=== PATIENT | female | born 1955 | race Caucasian/White ===

== ENCOUNTER 2017-02-02 09:19 | Day surgery (SDC) | payer OTHER ==
--- NOTE | 2017-02-01 12:56 | PREOPHP ---
DATE OF ADMISSION: 02/02/2017 HISTORY OF PRESENT ILLNESS: This 61-year-old patient is admitted for elective cataract surgery of t he left eye. The patient has had decreased vision in that eye over the last half a year's time. Th e patient also has a history of chronic open angle glaucoma, currently being controlled with latanop alyssa and brimonidine in both eyes. The patient's systemic history is positive for an adult onset di abetes mellitus, systemic hypertension, and chronic kidney disease, lupus, gout, asthma, chronic gas tritis and rhinitis. ALLERGIES: The patient is allergic to NORVASC and PRINIVIL. CURRENT MEDICATIONS INCLUDE: Humalog insulin, furosemide, potassium chloride, Losartan, metoprolol, simvastatin, aspirin (discontinued 1 week prior to surgery). The patient uses Prevacid on an as ne eded basis. The patient is also on Flovent, fludrocortisone nasal spray, loratadine, Montelukast, a nd Ventolin on an as needed basis. PHYSICAL EXAMINATION: The visual acuity with best correction is 20/40 in the right eye and 20/80 in the left eye. Slit lamp examination reveals nucleated sclerotic cataract of moderate degree in bot h eyes and a posterior subcapsular opacity in the left eye. Applanation tonometry is 16 mmHg. Exam ination of the retina reveals optic disks changes secondary to chronic glaucoma. DIAGNOSIS: Cataract, left eye. PLAN: Cataract extraction with lens implant, left eye. The risks and alternatives to the surgery h ave been discussed with the patient as well as the hope for improvement of visual acuity leading to greater ability to perform activities of daily living. The patient understands this and agrees to armani shen with surgery. Dictated By: DOROTHY SNEED/SABINE Conf#: [id number] DID#: [id number] CC: DOROTHY COOPER MD;*EndCC*
[2017-02-02] VITALS (12 sets, daily range): BP systolic 98–135; BP diastolic 51–63; PULSE 60–72; RESP 16–28; Ht 154.9 cm; Wt 101.0 kg
[~2017-02-02] VITALS: Ht 154.9 cm; Wt 101.0 kg
[~2017-02-02 09:19] MED LIST: ALLO100T PO; ALLO300T2 PO; BROMFENAC SODIUM 1.7 ML OPH DROP OPER SCH; CLON-230 PO; CYCLOPENTOLATE/PHENYLEPH 2 ML OPH OPER SCH; FLUT1DIS22 IH; INSU100C3 SQ; INSU100C5 SQ; LANS15CA19 PO; LASS PO; LOSA100T47 PO; METO-104 PO; MOXIFLOXACIN 0.5% 3 ML OPH OPER SCH; NASO17 NS; POTA25TA PO; RTPRO5 IH; SIMV40TA3 PO; SOD CHLORIDE 0.9% 1,000 ML IV SCH; TRAM50TA2 PO; TROPICAMIDE 1% 3 ML OPH OPER SCH
[2017-02-02] MEDS ORDERED: INSU100I33 SC (09:47)
[2017-02-02] MEDS ORDERED: INSU200I SQ (09:48)
[2017-02-02] MEDS ORDERED: LOSA100T7 PO (09:49)
[2017-02-02] MEDS ORDERED: POTA8TAB2 PO (09:49)
[2017-02-02] MEDS ORDERED: FURO40TA4 PO (09:49)
[2017-02-02] MEDS ORDERED: SIMV20TA PO (10:25)
[2017-02-02] MEDS ORDERED: ASPI-664 PO (10:25)
[2017-02-02] MEDS ORDERED: METO-336 PO (10:25)
[2017-02-02] MEDS ORDERED: DOCU100C26 PO (10:26)
[2017-02-02] MEDS ORDERED: PANT40TA4 PO (10:26)
[2017-02-02] MEDS ORDERED: LATA2.5D2 BOTH EYES (10:27)
[2017-02-02] MEDS ORDERED: COMBIG5 BOTH EYES (10:27)
[2017-02-02] MEDS ORDERED: FLOV220 INHALATION (10:28)
[2017-02-02] MEDS ORDERED: FLUT16SP17 NASAL (10:28)
[2017-02-02] MEDS ORDERED: LORA10TA3 PO (10:28)
[2017-02-02] MEDS ORDERED: MONT10TA24 PO (10:29)
[2017-02-02] MEDS ORDERED: GABA300C16 PO (10:30)
[2017-02-02] MEDS ORDERED: TRAM-40 PO (10:30)
[2017-02-02] MEDS ORDERED: ALLO100T PO (10:31)
[2017-02-02] MEDS ORDERED: CYCL-319 PO (10:31)
[2017-02-02] MEDS ORDERED: ACET1TAB40 PO (10:32)
[2017-02-02] MEDS ORDERED: FENTAnyl 50 MCG/ML VIAL IV PRN ×3 (11:00)
[2017-02-02] MEDS ORDERED: METOCLOPRAMIDE 10 MG INJ IV PRN (11:00)
[2017-02-02] MEDS ORDERED: OXYCODONE/ACETAMINOPHEN (5/325) TAB PO PRN ×2 (11:00)
[2017-02-02] MEDS ORDERED: LABETALOL HCL 20MG INJ IV PRN (11:00)
[2017-02-02] MEDS ORDERED: MEPERIDINE 25 MG INJ IV PRN (11:00)
[2017-02-02] MEDS ORDERED: DIPHENHYDRAMINE 50 MG INJ IV PRN (11:00)
[2017-02-02] MEDS ORDERED: ONDANSETRON 4 MG INJ IV PRN (11:00)
[2017-02-02] MEDS ORDERED: hydrALAzine 20 MG INJ IV PRN (11:00)
[2017-02-02] MEDS ORDERED: MIDAZOLAM 1 MG/ML 2 ML INJ IV PRN (11:00)
[2017-02-02] MEDS ORDERED: EPHEDrine SULFATE 50 MG/5 ML SYG IV PRN (11:00)
[2017-02-02] MEDS ORDERED: PROPOFOL 20 ML ONE (11:24)
[2017-02-02] MEDS ORDERED: CARBACHOL 0.01% 1.5 ML OPH INJ IO ONE (11:30)
[2017-02-02] MEDS ORDERED: DEXAMETHASONE 4 MG/ML 1 ML INJ INJ ONE (11:30)
[2017-02-02] MEDS ORDERED: CEFAZOLIN 1 GM INJ INJ ONE (11:30)
[2017-02-02] MEDS ORDERED: CARBACHOL 0.01% 1.5 ML OPH INJ ONE (11:37)
[2017-02-02] MEDS ORDERED: CEFAZOLIN 1 GM INJ ONE (11:38)
[2017-02-02] MEDS ORDERED: LIDOCAINE 4% (MPF) 5 ML INJ ONE (11:38)
[2017-02-02] MEDS ORDERED: DEXAMETHASONE 4 MG/ML 1 ML INJ ONE (11:38)
[2017-02-02] MEDS ORDERED: GENTAMICIN 80 MG INJ ONE (11:38)
[2017-02-02] MEDS ORDERED: EPINEPHrine 1 MG INJ ONE (11:38)
--- NOTE | 2017-02-02 12:24 | SIPON ---
Date/Time of Note Date/Time of Note DATE: 02/02/17 TIME: 12:23 Operative Report Preoperative Diagnosis cataract os Postoperative Diagnosis same Operation/Procedure Performed cataract implant surgery Surgeon see signature line medical office assistant none Anesthesia: MAC Estimated blood loss: none Transfusion Required none Specimen none Grafts/Implants posterior chamber lens implant Complications none DOROTHY COOPER MD Feb 02, 2017 12:24
--- NOTE | 2017-02-02 13:15 | OPR ---
DATE OF OPERATION: 02/02/2017 PREOPERATIVE DIAGNOSIS: Cataract, left eye. POSTOPERATIVE DIAGNOSIS: Cataract, left eye. SURGEON: Dorothy Grijalva MD ANESTHESIA: Local standby. ANESTHESIOLOGIST: Dr. Solis. OPERATION: Phacoemulsification with posterior chamber intraocular lens implant, left eye. PROCEDURE: The patient was brought to the operating room and placed on the table with an IV in plac e and the patient attached to an desk monitor. Oxygen was given via face mask. After some intravenous sedation was administered, local anesthesia was given using Xylocaine 2% with epinephrine, mixed with Marcaine 0.5%. This was given in a lid block and retrobulbar injection. The patient was then prepped and draped in the usual sterile manner. A wire lid speculum was inserted between the lids of the left eye. A Superblade was used to enter th e anterior chamber at the corneoscleral limbus at the 10:30 o'clock position. A separate incision wa s made using a 3.0-mm keratome which entered the corneoscleral junction at the 12 o'clock position. Through this 3-mm opening, an irrigating cystotome was introduced into the anterior chamber. The estephania mber was filled with Provisc and an anterior capsulotomy was performed. Balanced salt solution was t hen used for hydrodissection of the lens. A phacoemulsification handpiece was then brought into the field and introduced into the anterior chamber. The lens nucleus was emulsified using a deep groove and cracking the nucleus into quadrants. Following this, each quadrant was aspirated and emulsified at the pupillary margin. After this was completed, the irrigation/aspiration handpiece was brought to the field, introduced i nto the posterior chamber, and the lens cortical material was removed. When this was completed, j carlos tional Viscoat was injected into the anterior and posterior chambers. The 3-mm opening had its internal lips enlarged, and then the posterior chamber intraocular lens shantell suring 14.0 diopter (Bausch and Lomb model LI61AO) was then injected into the posterior chamber usin g the lens injector system. After the leading haptic was introduced into the capsular bag and the le ns optic was present in the center of the eye, the injector was removed and the trailing haptic was grasped with non-toothed forceps and introduced into the capsular fold superiorly. A Sinskey hook wa s then used to rotate the intraocular lens so that the lips were oriented in the horizontal meridian . One 10-0 nylon suture was placed across the wound. Prior to tying, the irrigation/aspiration handpiece was reintroduced into the anterior chamber to re move the Viscoat. Miochol was instilled to constrict the pupil, and then the 10-0 nylon suture was t ied. The ends were cut short and then the knot was buried. Then, 0.5 mL of dexamethasone and 0.5 mL of Ancef were injected into the sub-Tenon space in the infe rior fornix. Ciloxan drops were then placed on the surface of the eye. The speculum was removed and a patch was applied. The patient then left the operating room in satisfactory condition. Dictated By: DOROTHY SNEED/SABINE Conf#: [id number] DID#: [id number]
== END 2017-02-02 14:05 | disposition home or self-care (01) ==
LOC: SDS 09:19
PROVIDERS: ATTEND Ophthalmology
DX: H25.12 Age-related nuclear cataract, left eye (principal); N18.3 Chronic kidney disease, stage 3 (moderate); E11.22 Type 2 diabetes mellitus with diabetic chronic kidney disease; I12.9 Hypertensive chronic kidney disease with stage 1 through stage 4 chronic kidney disease, or unspecified chronic kidney disease
CPT/HCPCS: 66984; 82962; J0171; J0690; J1100; J1580; V2632; Z7512; Z7610

== ENCOUNTER 2017-10-07 08:31 | Day surgery (SDC) | END 2017-10-07 15:00 | disposition home or self-care (01) ==

== ENCOUNTER 2017-10-26 06:55 | Day surgery (SDC) | END 2017-10-26 12:50 | disposition home or self-care (01) ==

== ENCOUNTER 2018-06-13 08:47 | Day surgery (SDC) | payer OTHER ==
[~2018-06-13] VITALS: Ht 152.4 cm; Wt 99.4 kg
[~2018-06-13 08:47] MED LIST changes: +ACET1TAB40 PO; +ALBU18HF INHALATION; -ALLO300T2 PO; +BRIM15DR7 BOTH EYES; -BROMFENAC SODIUM 1.7 ML OPH DROP OPER SCH; -CLON-230 PO; +CYCL10TA7 PO; -CYCLOPENTOLATE/PHENYLEPH 2 ML OPH OPER SCH; +DOCU-221 PO; +FLOV220 INHALATION; +FLUT16SP17 NASAL; -FLUT1DIS22 IH; +FURO40TA4 PO; -INSU100C3 SQ; -INSU100C5 SQ; +INSU100I12 SQ; +INSU100I33 SC; -LANS15CA19 PO; -LASS PO; +LATA2.5D2 BOTH EYES; +LORA10TA3 PO; -LOSA100T47 PO; +LOSA50TA14 PO; +METF500T24 PO; -METO-104 PO; +METO-336 PO; +MONT10TA24 PO; -MOXIFLOXACIN 0.5% 3 ML OPH OPER SCH; -NASO17 NS; +PANT40TA4 PO; -POTA25TA PO; -RTPRO5 IH; +SIMV20TA PO; -SIMV40TA3 PO; -SOD CHLORIDE 0.9% 1,000 ML IV SCH; +SPIR25TA PO; +TRAM50TA PO; -TRAM50TA2 PO; -TROPICAMIDE 1% 3 ML OPH OPER SCH
[2018-06-13 09:53] VITALS: Ht 152.4 cm; Wt 99.4 kg
[2018-06-13] MEDS ORDERED: SUDOGEST (09:59)
[2018-06-13] MEDS ORDERED: CARVEDILOL (09:59)
[2018-06-13] MEDS ORDERED: BREO (09:59)
[2018-06-13 10:10] VITALS: BP 107/69; PULSE 68; RESP 14
--- NOTE | 2018-06-13 10:43 | PREAC ---
Date/Time of Note Date/Time of Note DATE: 06/13/18 TIME: 10:37 Anesthesia Eval and Record Evaluation Time Pre-Procedure Interview DATE: 06/13/18 TIME: 10:37 Age 63 Sex female NPO: 8 hrs Preoperative diagnosis rectal bleeding Planned procedure colonoscopy Past Medical History Past Medical History: Includes Cardio: HTN, CHF (cardiomyopathy) Endo: Diabetes Pulm: Asthma Neuro: Peripheral neuropathy (secondary to neuropathy), Other (lupus) GI: Morbid obesity Surgery & Anesthesia Issues No known issue Meds Anticoagulation: No Beta Lynnette within 24 hr: Yes Reported Medications [Sudogest] No Conflict Check 06/13/18 [Breo] No Conflict Check 06/13/18 [Carvedilol] No Conflict Check 06/13/18 Tramadol Hcl* (Ultram*) 50 Mg Tablet, 50 MG PO BID PRN for PAIN, TAB 10/26/17 Cyclobenzaprine Hcl* (Cyclobenzaprine Hcl*) 10 Mg Tablet, 10 MG PO Q8, #60 TAB 10/26/17 Allopurinol* (Allopurinol*) 100 Mg Tablet, 200 MG PO BID, TAB 10/26/17 Acetaminophen with Codeine (Acetaminophen-Cod #3 Tablet) 1 Each Tablet, 1 TAB PO Q6H PRN for NEEDED, #7 TAB 10/26/17 Albuterol Sulfate* (Ventolin HFA*) 18 Gm Hfa.aer.ad, 2 PUFF INHALATION Q4H, #1 INHALER 10/26/17 Montelukast Sodium* (Montelukast Sodium*) 10 Mg Tablet, 10 MG PO QHS, #30 TAB 10/26/17 Loratadine* (Loratadine*) 10 Mg Tablet, 10 MG PO DAILY, #30 TAB 10/26/17 Fluticasone Propionate* (Flovent* HFA 220) 12 Gm Inha, 2 PUFF INHALATION BID, #1 INHALER 10/26/17 Latanoprost (Latanoprost) 2.5 Ml Drops, 1 DROP BOTH EYES QHS, #1 BOTTLE 10/26/17 Brimonidine Tartrate* (Brimonidine Tartrate*) 0.2%-15ML Drop Opht, 1 DROP BOTH EYES BID, #1 EA 10/26/17 Docusate Sodium* (Doc-Q-Lace*) 100 Mg Capsule, 100 MG PO BID PRN for CONSTIPATION, CAP 10/26/17 Pantoprazole* (Pantoprazole*) 40 Mg Tablet.dr, 40 MG PO AC BREAKFAST, TAB 10/26/17 Simvastatin* (Zocor*) 20 Mg Tablet, 20 MG PO QHS, #30 TAB 10/26/17 Losartan Potassium* (Losartan Potassium*) 50 Mg Tablet, 50 MG PO DAILY, TAB 10/26/17 Furosemide* (Furosemide*) 40 Mg Tablet, 40 MG PO DAILY, TAB 10/26/17 Metformin Hcl* (Metformin Hcl*) 500 Mg Tablet, 500 MG PO QHS, #30 TAB 10/26/17 Insulin Lispro (Humalog Kwikpen U-100) 100 Unit/1 Ml Insuln.pen, 48 UNIT SQ BEFORE MEALS, EA 10/26/17 Insulin Glargine,Hum.rec.anlog (Basaglar Kwikpen U-100) 100 Unit/1 Ml Insuln.pen, 120 UNIT SC QHS, EA 10/26/17 Discontinued Reported Medications Fluticasone Propionate* (Fluticasone Propionate* Nasal) 50 Mcg/Alpine - 16 Gm Alpine.susp, 2 SPRAYS NASAL QPM, #1 BOTTLE TO EACH NOSTRIL 10/26/17 Metoprolol Succinate* (Toprol XL*) 100 Mg Tab.sr.24h, 100 MG PO BID, #30 TAB 10/26/17 Spironolactone* (Aldactone*) 25 Mg Tablet, 25 MG PO QAM, #30 TAB 10/26/17 Meds reviewed: Yes Allergies Coded Allergies: amlodipine besylate (Verified Allergy, Unknown, 06/13/18) lisinopril (Verified Allergy, Unknown, 06/13/18) Allergies Reviewed: Yes Labs/Studies Labs Reviewed: Reviewed by anesthesiologist test: N/A (advanced age) Pre-procedure Exam Last vitals Vital Signs Date Temp Pulse Resp B/P (MAP) Pulse Ox O2 O2 Flow FiO2 Time Delivery Rate 06/13/18 97.9 68 14 107/69 94 Room Air 10:10 (82) Airway: Adequate mouth opening, Adequate thyromental dist Mallampati: Mallampati III Teeth: Abnormal (upper incisors rotten, chipped; poor dentition missing multiple upper) Lung: Normal Heart: Normal ASA Physical Status ASA physical status: 3 Emergency: None Planned Anesthetic General/MAC: MAC Planned Pain Management Parenteral pain med Pre-operative Attestations Prior to commencing anesthesia and surgery, the patient was re-evaluated, there was verification of: *The patient's identity *The results of appropriate recent lab work and preoperative vital signs *The above evaluation not changing prior to induction *Anesthetic plan, risk benefits, alternative and complications discussed with patient/family; questions answered; patient/family understands, accepts and wishes to proceed. JAYNE STUART BOX PULLER Jun 13, 2018 10:43
[2018-06-13] MEDS ORDERED: PROPOFOL 40 ML ONE (10:49)
[2018-06-13] MEDS ORDERED: LIDOCAINE 2% (SDV) 5 ML INJ ONE (10:49)
[2018-06-13] MEDS ORDERED: PROPOFOL 20 ML ONE (11:34)
[2018-06-13] MEDS ORDERED: EPHEDrine 25 MG/5 ML SYG ONE (11:34)
--- NOTE | 2018-06-13 11:39 | PAC ---
Date/Time of Note Date/Time of Note DATE: 06/13/18 TIME: 11:38 Post-Anesthesia Notes Post-Anesthesia Note Last documented vital signs Vital Signs Date Temp Pulse Resp B/P (MAP) Pulse Ox O2 O2 Flow FiO2 Time Delivery Rate 06/13/18 97.9 68 14 107/69 94 Room Air 10:10 (82) Activity: WNL Respiratory function: WNL Cardiovascular function: WNL Mental status: Baseline Pain reasonably controlled: Yes Hydration appropriate: Yes Nausea/Vomiting absent: Yes Comments BP: 94/52 HR: 62 RR: 15 T: 98 SaO2:94% DIRK YANCEY MD Jun 13, 2018 11:39
[2018-06-13 11:55] VITALS: BP 110/65; PULSE 74; RESP 14
[2018-06-13] MEDS ORDERED: ALBUTEROL 0.083% (NEB) 2.5 MG/3 ML AMP HHN PRN (12:00)
[2018-06-13] MEDS ORDERED: ONDANSETRON 4 MG INJ IV PRN (12:00)
== END 2018-06-13 15:11 | disposition home or self-care (01) ==
LOC: GIL 08:47
PROVIDERS: ATTEND Internal Medicine Gastroenterology
DX: K63.5 Polyp of colon (principal); I11.0 Hypertensive heart disease with heart failure; I50.9 Heart failure, unspecified; E11.9 Type 2 diabetes mellitus without complications; Z79.4 Long term (current) use of insulin
CPT/HCPCS: 45385; 82962; 88305; Z7610